=== PATIENT | male | born 1950 | race Caucasian/White ===

== ENCOUNTER 2023-12-22 10:42 | Outpatient (CLI) | payer MEDICARE, OTHER ==
--- NOTE | 2023-12-22 16:54 | XRAY Report ---
PROCEDURE: Hips w/Pelvis 2-3V BL INDICATIONS: BILAT HIP PAIN TECHNIQUE: 3 view(s) of the hip were acquired. COMPARISON: None. FINDINGS: Bones: No fractures or dislocations. No suspicious bony lesions. The visualized pelvic ring appear s intact. Moderate to severe bilateral degenerative hip joint space narrowing. Subchondral sclerosis is present. Minimal paratracheal or osteophytes. No erosions. Soft tissues: No suspicious soft tissue calcifications or masses. IMPRESSION: Bilateral hip arthritic change. Reviewed by: Heather Jerome MD on 12/22/2023 4:53 PM PDT Approved by: Heather Jerome MD on 12/22/2023 4:53 PM PDT Station ID: [id number]
== END 2023-12-22 10:43 | disposition home or self-care (01) ==
LOC: DI.N 10:42
PROVIDERS: ATTEND Internal Medicine
DX: M16.0 Bilateral primary osteoarthritis of hip (principal)